=== PATIENT | female | born 1955 | race Caucasian/White ===

== ENCOUNTER → 2017-01-24 | Day surgery (SDC) | payer OTHER ==
[~2017-01-24] MED LIST: ALBUTEROL20 ml INH; ALEVE220 M1 PO; CELEXA20 MG PO; ROBAXIN 750750 M1; SPIRIVA RESPIMAT4 G1 INH; ZESTORETIC 10-1 EAC1
--- NOTE | ~2017-01-24 | OR ---
Unit #: [id number] #: [id number] Patient: VANI MARTINEZ [id number] [address] [address] [id number] O MR#: [id number] NAME: VANI MARTINEZ ROOM: Date of Procedure: 01/24/2017 Admission Date: 01/24/2017 Surgeon: Jose Varela M.D. : 1955 Attending Physician: Jose Varela M.D. Referring Physician: Jose Varela M.D. Primary Care Physician: Chayito Roberts M.D. PROCEDURE OPERATIVE NOTE PREOPERATIVE DIAGNOSIS Screening colonoscopy. POSTOPERATIVE DIAGNOSIS Screening colonoscopy. PROCEDURE PERFORMED Colonoscopy to cecum. ANESTHESIA Monitored anesthesia care. FINDINGS Patient was found to have a normal colon to the cecum other than mild internal hemorrhoids. SPECIMENS None. COMPLICATIONS None apparent. CONDITION The patient tolerated the procedure well. INDICATIONS Patient is a 61-year-old, white female who has a cousin with rectal cancer. She has never had a screening colonoscopy. She presents at this time for further evaluation and treatment by colonoscopy. OPERATION After obtaining informed consent, the patient was brought to the endoscopy suite and, after adequate monitored anesthesia care, the colonoscope was passed through the anus and slowly advanced to the level of the cecum without difficulty with the lumen always in the view. The cecum was normal as was the ileocecal valve. The ascending colon was normal as was the hepatic flexure, transverse colon, splenic flexure, descending colon, sigmoid colon, and rectum. No diverticula were seen. On retroflexing in the rectum to the anorectal junction, there were some mild internal hemorrhoids seen. The scope was removed without difficulty and the patient went from the endoscopy suite to the recovery area in stable condition. Unit #: [id number] #: [id number] Patient: VANI MARTINEZ RECOMMENDATIONS High fiber diet, lots of liquids, Tucks or wipes p.r.n., and follow up p.r.n. Dictated by... Jose Varela M.D. NATHALIE/mary lou TD: 01/25/2017 06:32 JOB #: [id number] PROCEDURE OPERATIVE NOTE Page 1 of 1 X Jose Varela MD PROCEDURE OPERATIVE NOTE
== END | disposition home or self-care (01) ==
LOC: COPS 10:44
DX: Z12.11 Encounter for screening for malignant neoplasm of colon (principal); K64.8 Other hemorrhoids; I10 Essential (primary) hypertension; J44.9 Chronic obstructive pulmonary disease, unspecified; M19.90 Unspecified osteoarthritis, unspecified site; F17.290 Nicotine dependence, other tobacco product, uncomplicated; Z80.0 Family history of malignant neoplasm of digestive organs; Z88.0 Allergy status to penicillin; Z88.5 Allergy status to narcotic agent; Z79.1 Long term (current) use of non-steroidal anti-inflammatories (NSAID); Z79.899 Other long term (current) drug therapy; Z90.49 Acquired absence of other specified parts of digestive tract